=== PATIENT | male | born 1960 | race American Indian/Alaskan Native ===

== ENCOUNTER 2017-07-09 04:57 | Emergency (ER) | payer OTHER ==
[2017-07-09 06:49] VITALS: BP 129/75
[2017-07-09 07:22] LABS: Basophils % (Auto) 0.3 % (0.0-1.8); Eosinophils % (Auto) 1.3 % (0.0-4.3); Hematocrit 28.7 % (35.5-45.6); Hemoglobin 9.9 gm/dl (11.8-15.2); Mean Corpuscular HGB Conc 34 % (32-34); Mean Corpuscular Hemoglobin 30 pg (28-32); Mean Corpuscular Volume 87 fl (84-94); Platelet Count 195 K/mm3 (140-440); White Blood Count 6.2 K/mm3 (4.5-11.0)
[2017-07-09 07:42] LABS: Alanine Aminotransferase 9 units/L (7-56); Albumin 3.7 g/dL (3.9-5); Albumin/Globulin Ratio 1.3 %; Alkaline Phosphatase 75 units/L (35-129); Anion Gap 16 mmol/L; BUN/Creatinine Ratio 15; Blood Urea Nitrogen 18 mg/dL (9-20); Carbon Dioxide 26 mmol/L (22-30); Chloride 105.5 mmol/L (98-107); Glucose 125 mg/dL (75-100); Lipase 36 units/L (13-60); Potassium 3.8 mmol/L (3.6-5.0); Sodium 144 mmol/L (137-145); Total Protein 6.6 g/dL (6.3-8.2)
[2017-07-09] MEDS ORDERED: NACL 0.9% 1000 ML 2,000 ML ONE (07:54)
--- NOTE | 2017-07-09 08:22 | Emergency Department Report ---
HPI - General Chief Complaint: Abdominal Pain Time Seen by Provider: 07/09/17 07:57 - HPI HPI: This is a 57-year-old male presents to the emergency department from home with the complaint of a 2 to three-day history of left lower quadrant abdominal and/or flank pain, and a one-day history of some midsternal chest pain. He denies any shortness of breath, nausea, vomiting or diaphoresis. He has a past medical history of insulin and diabetes. He has not taken anything for her symptoms prior presentation and was not given anything for his symptoms in route with EMS. He denies any problems with bowel or bladder, fever. ED Past Medical Hx - Past Medical History Hx Diabetes: Yes - Surgical History Additional Surgical History: Right Rotator cuff, Right cataract, Right chest surgery - Social History Smoking Status: Current Every Day Smoker Substance Use Type: None - Medications Home Medications: Home Medications Medication Instructions Recorded Confirmed Last Taken Type HYDROcodone/APAP 5-325 [[place] 1 each PO Q6HR PRN #10 tablet 07/09/17 Unknown Rx 5/325] ED Review of Systems ROS: Stated complaint: LEFT FLANK PAIN Other details as noted in HPI Comment: All other systems reviewed and negative Constitutional: denies: chills, fever Eyes: denies: eye pain, eye discharge, vision change ENT: denies: ear pain, throat pain Respiratory: denies: cough, shortness of breath, wheezing Cardiovascular: chest pain. denies: palpitations Gastrointestinal: abdominal pain. denies: nausea, diarrhea Genitourinary: denies: urgency, dysuria Musculoskeletal: denies: back pain, joint swelling, arthralgia Skin: denies: rash, lesions Neurological: denies: headache, weakness, paresthesias Physical Exam - Physical Exam Vital Signs: Vital Signs 07/09/17 06:41 Temperature 98.7 F Pulse Rate 77 Respiratory 18 Rate Blood Pressure 129/75 O2 Sat by Pulse 100 Oximetry Physical Exam: GENERAL: The patient is well-developed well-nourished. HENT: Normocephalic. Atraumatic. Patient has moist mucous membranes. EYES: Extraocular motions are intact. Pupils equal reactive to light bilaterally. NECK: Supple. Trachea is midline. CHEST/LUNGS: Clear to auscultation. There is no respiratory distress noted. HEART/CARDIOVASCULAR: Regular. There is no tachycardia. There is no murmur. ABDOMEN: Abdomen is soft. There is some very mild left lower quadrant tenderness to palpation. No guarding rebound tenderness. No peritoneal signs. Patient has normal bowel sounds. There is no abdominal distention. SKIN: Skin is warm and dry. NEURO: The patient is awake, alert, and oriented. The patient is cooperative. The patient has no focal neurologic deficits. The patient has normal speech and gait. MUSCULOSKELETAL: There is no tenderness or deformity. There is no limitation range of motion. There is no evidence of acute injury. ED Course Vital Signs 07/09/17 06:41 Temperature 98.7 F Pulse Rate 77 Respiratory 18 Rate Blood Pressure 129/75 O2 Sat by Pulse 100 Oximetry ED Medical Decision Making - Lab Data Result diagrams: 07/09/17 07:07 07/09/17 07:07 - EKG Data -: EKG Interpreted by Me EKG shows normal: sinus rhythm (with PVCs), axis, intervals, QRS complexes, ST- T waves Rate: normal - EKG Data When compared to previous EKG there are: previous EKG unavailable Interpretation: normal EKG - Radiology Data Radiology results: report reviewed, image reviewed interpreted by me: Chest x-ray does not show any acute process. There are no pleural effusions, obvious pneumonia and there is no pneumothorax. Abdominal x-ray shows nonspecific nonobstructive bowel gas. CT ABDOMEN PELVIS WITH CONTRAST: HISTORY: abdominal pain. COMPARISON: none. TECHNIQUE: Helical CT in 1.25mm intervals following IV contrast. Sagittal and coronal reconstructions. FINDINGS: Lung bases: Normal. Liver: Normal. Biliary system: Normal. Pancreas: Normal. Spleen: Normal. Kidneys/ureters/bladder: Normal. Adrenal glands: Normal. Aorta: Normal. Intestines: Normal. Appendix: Normal. Pelvic viscera: Normal. Ascites: None. Adenopathy: None. Musculoskeletal: Normal. IMPRESSION: Unremarkable CT scan of the abdomen and pelvis with contrast. Transcribed By: TTR Dictated By: LANEY SALMERON JR, MD Electronically Authenticated By: LANEY SALMERON JR, MD Signed Date/Time: 07/09/17 1016 - Medical Decision Making 57-year-old male presents with some intermittent chest pain and left lower quadrant abdominal pain. Regarding abdominal pain, labs have been unremarkable including normal bilirubin, lipase and LFTs. No leukocytosis. No urinary tract infection. CT of the abdomen and pelvis with IV contrast does not show any acute process. Regarding his chest pain, the chest pain has resolved upon presentation to the emergency department and has not returned. EKG is normal without ST elevation NE, ischemia or dysrhythmia. Labs showed negative troponins 2 and a negative d-dimer. Chest x-ray does not show any acute process. Vital signs stable including being afebrile. The patient also apparently had a negative stress test within the last year back home in [place]. From these reasons he appears safe for discharge home at this time. He is not going back to [place] for a few weeks ago he was given a referral for cardiology but encouraged to return to the ER with any return of his chest pain or any acute distress. He understands and agrees to plan. - Differential Diagnosis costochondritis, NE, PE, diverticulitis, colitis Critical Care Time: No Critical care attestation.: If time is entered above; I have spent that time in minutes in the direct care of this critically ill patient, excluding procedure time. ED Disposition Clinical Impression: Left flank pain, Intermittent chest pain Disposition: TO HOME OR SELFCARE Is pt being admited?: No Condition: Stable Instructions: Chest Pain (ED), Flank Pain (ED) Additional Instructions: Please follow-up with your primary care physician once you are able to do so. Return to the emergency department with any return of your chest pain or any acute distress. I've given him a referral for a local probation and patrol agent, Dr. Jackson, in case she would like to follow up regarding your intermittent chest pains. You have been prescribed a medication that is sedating and therefore should not be taken prior to driving, working, and responsible for children and in no way should be mixed with alcohol of any quantity. Prescriptions: HYDROcodone/APAP 5-325 [[place] 5/325] 1 each PO Q6HR PRN #10 tablet PRN Reason: Pain Referrals: PIPPA JACKSON MD [Staff Physician] - 3-5 Days Time of Disposition: 10:29
[2017-07-09 09:12] LABS: Bilirubin,Urine NEG (Negative); Blood,Urine MOD (Negative); Ketones,Urine NEG (Negative); Leukocyte Esterase,Urine NEG (Negative); Mucus,Urine 1+ /HPF; Nitrite,Urine NEG (Negative); Urobilinogen,Urine < 2.0 mg/dL (<2.0)
--- NOTE | 2017-07-09 09:20 | XRay Report ---
ABDOMINAL SERIES: History: Chest pain, abdominal pain. Erect chest film shows no acute or significant changes involving the heart or lung garcia. There is no evidence of free air beneath the diaphragms. The gas pattern within the abdomen is unremarkable. There is no evidence of bowel dilatation, significant air-fluid levels, or masses. Organ shadows are unremarkable. IMPRESSION: Abdominal series within normal limits.
[2017-07-09 09:39] LABS: Protein,Urine >500 mg/dL (Negative)
[2017-07-09] MEDS ORDERED: NACL ONE (09:56)
--- NOTE | 2017-07-09 10:20 | Cat Scan Report ---
CT ABDOMEN PELVIS WITH CONTRAST: HISTORY: abdominal pain. COMPARISON: none. TECHNIQUE: Helical CT in 1.25mm intervals following IV contrast. Sagittal and coronal reconstructions. FINDINGS: Lung bases: Normal. Liver: Normal. Biliary system: Normal. Pancreas: Normal. Spleen: Normal. Kidneys/ureters/bladder: Normal. Adrenal glands: Normal. Aorta: Normal. Intestines: Normal. Appendix: Normal. Pelvic viscera: Normal. Ascites: None. Adenopathy: None. Musculoskeletal: Normal. IMPRESSION: Unremarkable CT scan of the abdomen and pelvis with contrast.
== END 2017-07-09 10:50 | disposition home or self-care (01) ==
LOC: ED 04:57
DX: R10.32 Left lower quadrant pain (principal); R07.89 Other chest pain; E11.9 Type 2 diabetes mellitus without complications; F17.200 Nicotine dependence, unspecified, uncomplicated
CPT/HCPCS: 36415; 74022; 74177; 80053; 81001; 83690; 84484; 85025; 85379; 93005; 93010; 99285; J7030; Q9966